=== PATIENT | female | born 1985 | race Caucasian/White ===

== ENCOUNTER 2020-12-13 17:45 | Emergency (ER) | payer MEDICAID, SELFPAY ==
[2020-12-13 17:46] VITALS: BP 153/91; PULSE 75; PULSE 80; RESP 18; TEMP 35.5; TEMP 35.6; O2SAT 98; BMI 45.3
--- NOTE | 2020-12-13 17:59 | US_ITS ---
STUDY: ULTRASOUND OF THE FEMALE PELVIS - COMPLETE REASON FOR EXAM: Female, 35 years old. Bleeding TECHNIQUE: Transvaginal TECHNICAL QUALITY: Adequate. COMPARISON: None. FINDINGS: The uterus is anteverted and is in a midline position. The uterus measures 10.2 x 5.1 x 4.5 cm. Normal uterine cervix. The endometrium measures 5 mm in thickness, and is hyperechoic. There is no demonstrated endometrial mass. There is a 4.2 x 4.0 x 2.0 cm complex mass in the cervix. There is a 3.1 x 2.9 cm fibroid in the lower uterine segment/cervix. The ovaries are not visualized due to bowel gas. There is no fluid in the cul-de-sac. US/Transvaginal Non- IMPRESSION: 4.2 x 4.0 x 2.0 cm complex mass in the cervix. Neoplasm is not excluded. If indicated, further evaluation with MRI can be performed. 3 cm fibroid in the lower uterine segment/cervix. Ovaries not visualized. Electronically Signed: Prasanna White MD at 19:48 EST Tel , Service support ,
--- NOTE | 2020-12-13 18:00 | ED.VISSUMM ---
- ER Visit Summary Date of Service: 12/13/20 Chief Complaint: [Vaginal bleeding] History of Present Illness: The patient is a 35 F [presents to the emergency department with complaint of vaginal bleeding and started 3 weeks ago. Patient states that she had some leftover Aygestin if she has had other episodes of prolonged bleeding and so she took 4 tablets after the initial week of bleeding which then slowed her bleeding down for few days. Patient now continuing to bleed and passing large clots. She complains of feeling off at times. She describes intermittent cramping to the lower abdomen. Patient has had prior tubal ligation and does not believe that she is . She denies urinary symptoms. Patient denies fever or recent illness. Patient states that she is been going through 4 tampons per day typically.] Physical Examination: [HEENT-PERRLA, EOMI. Cranial nerves II through XII grossly intact. TMs clear. Mucous membranes moist. No adenopathy. Cardiovascular-regular rate and rhythm without murmur or ectopy Lungs-clear to auscultation, chest wall stable without crepitus or subcu emphysema Abdomen-normoactive bowel sounds, soft, nontender, no rebound or rigidity, no peritoneal signs. Extremities-intact ?4, normal range of motion, normal pulses, atraumatic] Test Results: [CBC with differential count 11.3, hemoglobin 14, hematocrit 44, platelet 353. hCG was negative.] Pelvic ultrasound obtained showed a 4.2 x 4.0 x 2.0 cm complex mass in the cervix and neoplasm not excluded. Patient also had a 3 cm fibroid in the lower uterine segment. Emergency Department Course and Treatment: [Case discussed with patient and results discussed with patient. Discussed with Kimmie Love, OB, [employer]ICY PROFESSOR who recommended patient keep her appointment and if the patient was willing we could try Aygestin again.] Treatment Plan: Follow-up with [facility]. [] Disposition: [Discharged home in stable condition] Impression: [Dysfunctional uterine bleeding Fibroid uterus Cervical mass] This note was generated with [employer] software. It may contain incorrect words, spelling, and punctuation that were not noted in review of the chart prior to signing ED Disposition - Plan for ED Patient: Referrals: Care Physician,No Primary [Primary Care Provider] -
[2020-12-13 18:24] VITALS: BP 142/99; BP 97/71; PULSE 72; PULSE 77
[2020-12-13 18:39] LABS: Absolute Lymphocyte Count 3.04 X10^3/uL (0.83-4.51); Absolute Neutrophil Count 7.4 X10^3/uL (2.0-7.7); Basophil# 0.05 X10^3/uL; Basophil% 0.4 % (0-1); Eosinophil# 0.14 X10^3/uL; Eosinophils% 1.2 % (0-5); Hematocrit 44.4 % (37-47); Hemoglobin 14.1 g/dL (12.0-15.0); Lymphocyte # 3.04 X10^3/ul (4.0); Lymphocyte % 26.8 % (19-41); Mean Corp Hgb Conc 31.8 g/dL (32-36); Mean Corpuscular Hgb 27.5 pg (27.0-32.0); Mean Corpuscular Volume 86.7 fL (81-99); Mean Platelet Vol. 10.9 fl (6.2-12.0); Monocyte# 0.73 X10^3/uL; Monocyte% 6.4 % (0-10); NRBC Flagged by Analyzer 0 % (0-5); Neutrophil # 7.35 X10^3/uL (2.7-7.7); Neutrophil % 64.9 % (47-70); Platelet Count 353 K/mm3 (150-450); RBC Distribution Width CV 13.3 % (11.6-14.6); RBC Distribution Width SD 41.8 fl (35.1-43.9); Red Blood Count 5.12 M/mm3 (4.2-5.4); White Blood Count 11.3 K/mm3 (4.4-11.0)
[2020-12-13] MEDS: 0.9% Normal Saline 1,000 ML 150 ML IV (18:39)
[2020-12-13 18:50] LABS: Internal QC Validated? YES +Cl - CLEAR BKGD; Pregnancy, Serum, hCG Quali. NEGATIVE Negative
[2020-12-13 20:09] VITALS: BP 128/74; PULSE 74; RESP 16; O2SAT 99
[2020-12-13 20:10] VITALS: BP 128/74; BP 133/70; PULSE 74; PULSE 90
--- NOTE | 2020-12-13 20:20 | ED.DEP ---
ED Disposition - Plan for ED Patient: Instructions: ED Dysfunctional Uterine Bleeding, ED Uterine Fibroids Referrals: Care Physician,No Primary [Primary Care Provider] - Raysa Bazan MD [STAFF PHYSICIAN] - 12/16/20
== END 2020-12-13 20:33 | disposition home or self-care (01) ==
LOC: ED 18:22
PROVIDERS: Emergency Provider Emergency Medicine
DX: D25.9 Leiomyoma of uterus, unspecified (principal); N93.8 Other specified abnormal uterine and vaginal bleeding; N88.8 Other specified noninflammatory disorders of cervix uteri
CPT/HCPCS: 76830; 84703; 85025; 96360; 96361; 99284; J7030; A4216

== ENCOUNTER 2021-02-23 08:34 | Day surgery (SDC) | payer MEDICAID, SELFPAY ==
[2021-02-22 11:42] LABS: Hematocrit 43.1 % (37-47); Hemoglobin 13.4 g/dL (12.0-15.0); Mean Corp Hgb Conc 31.1 g/dL (32-36); Mean Corpuscular Hgb 26.4 pg (27.0-32.0); Mean Platelet Vol. 10.6 fl (6.2-12.0); Platelet Count 350 K/mm3 (150-450); RBC Distribution Width CV 13.2 % (11.6-14.6); RBC Distribution Width SD 40.6 fl (35.1-43.9); Red Blood Count 5.07 M/mm3 (4.2-5.4); White Blood Count 9.6 K/mm3 (4.4-11.0)
[2021-02-22 12:06] LABS: Magnesium 2.3 mg/dL (1.6-2.6)
[2021-02-23] VITALS (9 sets, daily range): BP systolic 105–139; BP diastolic 59–84; PULSE 57–77; RESP 16; TEMP 36.1–36.8; O2SAT 92–100; BMI 45.4
[2021-02-23] MEDS: Lactated Ringers 1,000 ML 40 ML IV ×2 (09:15→13:00)
[2021-02-23] MEDS: Gabapentin 600 MG Tablet PO (09:16)
[2021-02-23] MEDS: Acetaminophen 500 MG Tablet 1000 MG PO (09:16)
[2021-02-23 09:21] LABS: Bedside Glucose 91 mg/dL (70-110)
--- NOTE | 2021-02-23 09:43 | PCM.HP.BLA ---
History and Physical Date of Admission: 02/23/21 HISTORY OF PRESENT ILLNESS: On 02/21/2021, Emily Doherty, a 35 year old female 3 0 1 0 3, presented for robotic assisted total laparoscopic hysterectomy and bilateral salpingectomy and cystoscopy for abnormal uterine bleeding and cervical fibroid. Patient has had extensive heavy bleeding that did not improve with OCPs or progesterone only pill. Additionally she had a finding of 2 to 3 cm cervical fibroid. Patient does not desire any future childbearing and has had bilateral tubal ligation in past. Options for management were discussed and patient elected for surgical management. MEDICAL HISTORY: 1. Obesity ALLERGIES: No Known Drug Allergies SURGICAL HISTORY: 1. Bilateral tubal ligation PAST PREGNANCIES: Total Pregnancies - 4; Full Term Pregnancies - 3; Premature - 0; Abortions, Induced - 1; Abortions, Spontaneous - 0; Ectopics - 0; Multiple Births - 0; Living Children - 3 FAMILY HISTORY: Mother - Carcinoma of breast; Mother - Rheumatoid arthritis; MaternalGrandparent - Colon Cancer; MaternalGrandparent - Type 2 Diabetes; PaternalGrandparent - Heart disorder; SOCIAL HISTORY: Alcohol Use - drinks occasionally Smoking - denies smoking Drugs - Denies REVIEW OF SYSTEMS: GENERAL - unremarkable SKIN - Denies rash, new skin lesions, or change in moles EYES - wears contact lenses EARS - unremarkable NOSE - unremarkable MOUTH - unremarkable NECK - unremarkable RESPIRATORY - unremarkable CARDIOVASCULAR - Denies palpitations, chest pain, orthopnea, PND, peripheral edema, syncope or claudication GASTROINTESTINAL - heartburn and occ GENITOURINARY - Denies dysuria, frequency of urination, urgency, or hesitancy MUSCULOSKELETAL - knees painful NEUROLOGICAL - unremarkable PSYCHIATRIC - denies depression or anxiety symptoms ENDOCRINE - menorrhagia HEMATO-IMMUNOLOGIC - denies easy bruising, bleeding or recurrent infections PHYSICAL EXAMINATION BP- 130/94 Sitting, Right arm, large cuff Temp- 98.2 Taken Orally Weight- 282.00 lbs Height- 65.00 inch BMI:47.03 CONSTITUTIONAL - NAD, well nourished, and well developed SKIN - No rash, lesions, or ulcers HEENT - Normocephalic, PERRLA, EOMI NECK - No nodes, no nuchal rigidity and thyroid normal size and texture LYMPH NODES - Palpation of lymph nodes in neck and groins within normal limits LUNGS - CTA x2 without wheezes, crackles or rales CARDIAC - Regular rate and rhythm without rubs, murmurs, or gallops ABDOMEN - Without hepatosplenomegaly, distention, masses, rebound, or guarding; normal bowel sounds; no hernias EXTREMITIES - No edema or calf tenderness NEUROLOGICAL - Cranial nerves II-XII grossly intact PSYCHIATRIC - A and O to time, place, person, mood and affect DETAILED PELVIC EXAM External Genital Vagina - non-tender without lesions Urethra/Urethral Meatus - non-tender Bladder - non-tender Vagina - vaginal jarquin are pink and moist without loss of rugae and no evidence of atropy Cervix - without cervical motion tenderness and has normal size and features without evident lesions and No cervical masses or lesions noted Uterus - 5-6 cm in size, mobile and nontender Adnexa - clear without masses or tenderness ASSESSMENT: PLAN BY DIAGNOSIS: 1. Abnormal Uterine And Vaginal Bleeding, cervical fibroid Heavy irregular bleeding starting in September of 2020. Last bleed was about 2 weeks long. Reports large clots. prolonged bleeding. No urinary or bowel symptoms, no bloating, no nausea/emesis US showing cervical mass, likely fibroid. Unlikely cervical cancer based on location, slight symptom decrease with aygestin. Discussed options for management. Based on history and cervical fibroid decision for surgical management was made. Planned for robotic assisted total laparoscopic hysterectomy bilateral salpingectomy and cystoscopy. R/B/A discussed. Risks include, but are not limited to: risk of bleeding to the point of transfusion, infection, injury to surrounding tissue (bowel/.bladder/ ureter requiring prolonged lawson use), ICU admission, VTE, laparotomy. Assessment & Plan Assessment/Plan (1) Abnormal uterine bleeding:
--- NOTE | 2021-02-23 10:37 | PCM.OPRPT ---
Report of Operation Date of Procedure: 02/23/21 Pre-Operative Diagnosis: Abnormal uterine bleeding, cervical fibroid Post-Operative Diagnosis: Abnormal uterine bleeding, cervical fibroid Surgery/Procedure Performed:: Robotic assisted total laparoscopic hysterectomy, bilateral salpingectomy, cystoscopy Description of Surgical Findings:: Normal-appearing external genitalia. Normal-appearing uterus, bilateral fallopian tubes. Small fluid-filled benign cyst left ovary. Cystoscopy: Intact bladder dome and bilateral ureteral jets. Urine output: 200 cc clear urine. Type of Anesthesia: General/Supplemental Specimen's removed: Uterus, cervix, bilateral fallopian tubes Estimated Blood Loss (mL): 150 cc Fluids Replaced: 1300 cc Description of Procedure: Indications/risk/benefits: 35-year-old female with refractory abnormal uterine bleeding and cervical fibroid. Plan for total laparoscopic hysterectomy, bilateral salpingectomy, cystoscopy. All risk, benefits, alternatives were discussed the patient. Risks include but are not limited to: Risk of bleeding to the point of transfusion, infection, injury to surrounding tissue including bowel bladder ureter requiring prolonged Koo catheter use, VTE, ICU admission, laparotomy. Patient aware and was consented. Procedure: Patient taken to the operating room placed under general anesthesia. Patient placed in the dorsal lithotomy position and prepped and draped in the usual sterile fashion. Koo catheter placed. Weighted speculum placed in posterior vagina and retractor used to visualize the cervix, anterior cervix grasped with single-tooth tenaculum. Cervix sequentially dilated and sounded 8 cm. [id number] stitches placed at the 3 and 9 o'clock position. Medium manipulator placed and secured with sutures. Retractors removed. Gloves changed and turned attention to anterior abdominal wall. Veress needle placed through umbilicus and insufflation was started, opening pressure of 8 mmHg. Vertical supraumbilical incision made. Robotic trocar was placed, with laparoscopic visualization it was noted that the scope was too short to go completely through the fascia and peritoneum. Therefore a trocar was removed and 12 mm port was opened. Trocar was attempted to be placed through the incision using direct visualization however blood in the trocar from subcutaneous tissue was obstructing view. Therefore decision to place assistant family teacher port at [place]dhury's point under was made. 8 mm trocar placed under direct visualization (optiview) at Chowdhury's point. Supraumbilical port was then placed under direct visualization. Right and left robotic trocars placed under direct visualization. Right upper quadrant assistant family teacher port was placed under direct visualization. Patient was then placed in maximum Trendelenburg and robot was docked. Both ureters were visualized. Right round ligament was coagulated and cut. Vesicouterine peritoneum was identified and a bladder flap was created. Dissection carried down towards the anterior cervix. Right fallopian tube was grasped at the fimbriated end, mesosalpinx was coagulated and cut. Fallopian tube removed at the cornua. Tube removed through the trocar. Right utero-ovarian ligament coagulated and cut. Dissection carried down towards the level of the uterine arteries. Further dissection of the bladder away from the anterior cervix was completed. As well as dissection of posterior peritoneum to allow skeletonization of the uterine arteries. At that time attention was then turned to the left side of the uterus. Left round ligament was coagulated and cut. Vesicouterine peritoneum and bladder flap carried down towards the anterior cervix to join the right side of the dissection. Left fallopian tube was coagulated cut starting at the fimbriated end heading towards the cornua, removed at cornua. Tube removed through the trocar. Left utero-ovarian ligament coagulated and cut. Dissection carried down in a similar fashion towards the level of the uterine arteries. At this time further attention to the bladder flap was done. Sharp and blunt dissection was completed to allow the bladder to fall away from the anterior cervix and the colpotomy cup. Left uterine artery skeletonization was completed. At that time left uterine arteries were coagulated and cut sequentially allowing them to fall away from the colpotomy cup. Right uterine arteries were coagulated and cut sequentially allowing them to fall away from the colpotomy cup as well. With uterine arteries dissected, anterior colpotomy was made. Anterior colpotomy was extended in a counterclockwise fashion circumferentially around the colpotomy cup. Uterus and cervix were then removed through the vagina. Vagina closed with a running V-Loc stitch starting at the right apex and ending at the left. Pelvis with suction irrigated noting hemostasis. Koo catheter removed. Cystoscopy was then completed noting an intact bladder dome and bilateral ureteral jets. Robot was then undocked. The supraumbilical trocar was removed and the Omniclose device was utilized to close the fascial incision. This was completed under laparoscopic visualization. Abdomen was then desufflated and trochars removed. Skin closed with subcuticular stitches and skin glue. At the end of the procedure all needle, lap, sponge counts were correct x3. Complications None
--- NOTE | 2021-02-23 10:45 | HYST_PTH ---
PATIENT: ROSA CUELLO LOC: [facility] [place] U#:[id number] AGE/SX: 35/F ROOM: RE02/23/[address]: Dr. Kimmie Love, : 1985 BED: DIS: 02/23/2021 SPEC #: [id number] RECD: 02/23/21 14:29 STATUS: ALYSE RESusan #: [id number] CHUCK: 02/23/21 10:[address]: Kimmie Love DEPT: SURGICAL PATHOLOGY RECD BY: Anna Kessler ENTERED: 02/24/21 09:51 SP TYPE: HYSTERECT OT DR: No Primary Care Phys Tissues: Uterus, NOS Procedures: Surgery Specimen Level V HEADER OPERATION: ERAS, robotic-assisted total laparoscopic hysterectomy, bilateral salpingectomy PRE-OP DIAGNOSIS: Abnormal uterine bleeding, cervical fibroid TISSUE SUBMITTED: Uterus, cervix, bilateral fallopian tubes MICROSCOPIC DIAGNOSIS Uterus, cervix and bilateral fallopian tubes, hysterectomy and bilateral salpingectomy: Cervix ? chronic cystic cervicitis. Endometrium ? proliferative endometrium. Myometrium ? focal superficial adenomyosis. Bilateral fallopian tubes - no pathologic diagnosis. SJ:erika 02/27/2021 MICROSCOPIC DESCRIPTION Slides are reviewed. GROSS DESCRIPTION Received in fixative is one container labeled with the patient's name and designated uterus, cervix, bilateral fallopian tubes. The specimen consists of a hysterectomy specimen consisting of uterus with cervix and detached bilateral fallopian tubes. The uterus with cervix weighs 123 gm and measures 10 x 7 x 4.5 cm. The serosal surface is bryan, glistening. The ectocervical mucosa is focally congested. The external os is circular in contour. The endocervical canal measures 3 cm in length and the endocervical mucosa is bryan, glistening and unremarkable. The cervix reveal multiple cysts filled with mucoid material. The largest cyst measures 2 cm in greatest dimension and it is filled with yellowish, thick mucoid material. The triangular endometrial cavity measures 5 cm in length and up to 2.5 cm in width. The endometrium is congested without any mass lesion and measures 0.2 cm in thickness. Sections of the uterine wall do not reveal any mass lesion and it measures up to 2.5 cm in thickness. The bilateral fallopian tubes are not identified as right or left and measures 5.5 cm in length and 0.5 cm in diameter and 4.5 cm in length and 0.5 cm in diameter. Fimbrial ends are identified. Sections reveal unremarkable cut surfaces. Manager Branch sections are submitted in ten cassettes as follows: 1 - anterior cervix, 2 - posterior cervix, 3 & 4 - anterior uterine wall, 5 & 6 - posterior uterine wall, 7 - largest cervical cyst, 8 - one fallopian tube, 9?& 10 - second fallopian tube. / CONY:erika 02/24/21 TC:3 CPT: 57235
[2021-02-23] MEDS: Cefazolin 2 GM in 0.9% Normal Saline 100 ML IV (10:59)
--- NOTE | 2021-02-23 13:36 | PCM.DC ---
Discharge Instructions Diet Discharge Diet: No restrictions Activity Discharge Activity: Return to Normal Activity, May not drive while taking narcotic pain medications. and May Shower May resume sexual activity in: 6-8 weeks Weight Bearing Status: Weight bearing as tolerated Lifting Restrictions: no more than 25 pounds Dressing / Incision Call your doctor if your incision/area has: Continuous Slow Oozing, Increased Redness and Foul Smelling Discharge Call your doctor if you observe: Fever of 101 or Higher, Inability to urinate, Using more than one pad per hour, Shortness of breath, Swelling in the ankles, Chest pain, Calf discomfort and Uncontrolled pain Change Dressing in: do not change dressing Remove Dressing in: do not remove dressing Cleanse incision/area with: Soap & Water and Keep Dressing Clean & Dry Follow Up Care Please Follow Up With: eduard love When: 2 week post operative visit Test Results: Test results from this visit will be discussed in further detail at your follow-up appointment, if applicable. Discharge Plan Admission Primary Reason for Your Visit: Hyesterectomy Attending Provider: Eduard Love Primary Care Provider: Care Physician,Laverne Primary Discharge Orders/Prescriptions Prescriptions: New oxycodone 5 mg tablet 5 mg PO Q6H PRN (Reason: pain (scale score 7-10)) 5 Days Qty: 24 RF: 0 No Action NK RF: 0 Referrals / Follow Up: Care Physician,No Primary [Primary Care Provider] - Disposition Discharge Orders: Discharge Patient (Routine); Ordered 02/23/21 Ordered By: Dr. Eduard Love
[2021-02-23] MEDS: Ondansetron 4 MG/2 ML Vial IV (13:56)
[2021-02-23] MEDS: HYDROcodone Bitartrate/Apap 5/325 Tablet PO (15:42)
== END 2021-02-23 17:36 | disposition home or self-care (01) ==
LOC: SDC 08:34 → AC 08:34
PROVIDERS: Anesthesiology; Referring Provider Student in an Organized Health Care Education/Training Program; Visit Provider Student in an Organized Health Care Education/Training Program
PROC: 0UT90ZZ Resection of Uterus, Open Approach (ICD-10-PCS; CPT 58552; principal; 2021-02-23 10:25)
DX: N72 Inflammatory disease of cervix uteri (principal); N80.0 Endometriosis of uterus; E66.9 Obesity, unspecified; Z68.42 Body mass index [BMI] 45.0-49.9, adult; Z20.822 Contact with and (suspected) exposure to COVID-19
CPT/HCPCS: 00944; 58552; 36415; 82962; 83735; 85027; 86850; 86900; 86901; 87426; 88307; C9803; J7120; J2405